=== PATIENT | male | born 1965 | race Caucasian/White ===

== ENCOUNTER 2017-04-07 03:20 | Emergency (ER) | payer MEDICARE, OTHER ==
[~2017-04-07] VITALS: Ht 177.8 cm; Wt 68.0 kg
[~2017-04-07 03:20] MED LIST: EMTR1TAB12 PO; HYDR-3326 PO; LOPI1TAB2 PO; RIFA300C4 PO; SULF1TAB48 PO
--- NOTE | 2017-04-07 03:30 | NUR ---
TO BED 10 BIB PARAMEDICS C/O DIARRHEA SINCE THURSDAY. PT AAOX4 NO ACUTE DISTRESS NOTED, RESP EVEN AND UNLABORED. PT DENIES N/V OR ABDOMINAL PAIN. ER MD AT BEDSIDE TO EVAL PT WITH ORDERS RECEIVED. WILL CARRY OUT ORDERS.
--- NOTE | 2017-04-07 03:45 | NUR ---
PT MEDICATED ORDERED BY ER .
[2017-04-07 03:51] LABS: BASOPHILS % (AUTO) 0.7 % (0.0-2.0); EOSINOPHILS % (AUTO) 0.8 % (0.0-6.0); HEMATOCRIT 35 % (39-51); HEMOGLOBIN 11.9 g/dL (13.5-17.5); LYMPHOCYTES # (AUTO) 1.4 /CMM (0.8-4.8); MEAN CORPUSCULAR HEMOGLOBIN 29 PG (26.0-33.0); MEAN CORPUSCULAR HGB CONC 34 g/dl (31.0-36.0); MEAN CORPUSCULAR VOLUME 85 fL (80-96); MONOCYTES # (AUTO) 0.3 /CMM (0.1-1.30); MONOCYTES % (AUTO) 7.8 % (2.0-12.0); NEUTROPHILS # (AUTO) 2.5 /CMM (1.8-8.9); NEUTROPHILS % (AUTO) 57.7 % (43.0-81.0); PLATELET COUNT (AUTO) 168 /CMM (150-450); RDW COEFFICIENT OF VARIATION 15.4 (11.5-15.0); RED BLOOD CELL COUNT(AUTO) 4.12 MIL/uL (4.5-6.0); WHITE BLOOD COUNT (AUTO) 4.4 K/uL (4.3-11.0)
[2017-04-07 04:04] LABS: INR 1.51 (0.87-1.13); PROTHROMBIN TIME 16.6 SECS (9.5-12.7)
--- NOTE | 2017-04-07 04:06 | NUR ---
PT ASLEEP, NO ACUTE DISTRESS NOTED, RESP EVEN AND UNLABORED. NO PAIN OR DISCOMFORT NOTED AT THIS TIME. CALL [facility] REACH.
[2017-04-07 04:15] LABS: ALBUMIN 3.8 g/dL (3.4-5.0); BILIRUBIN,DIRECT 0.2 mg/dL (0.0-0.2); CALCIUM, SERUM 8.8 mg/dL (8.5-10.1); POTASSIUM 3.5 mmol/L (3.5-5.1); TOTAL PROTEIN, SERUM 7.6 g/dL (6.4-8.2)
--- NOTE | 2017-04-07 05:07 | NUR ---
PT MEDICATED ORDERED BY ER .
--- NOTE | 2017-04-07 05:26 | NUR ---
PT ASLEEP, NO ACUTE DISTRESS NOTED, RESP EVEN AND UNLABORED. NO PAIN OR DISCOMFORT NOTED AT THIS TIME. CALL [facility] REACH.
--- NOTE | 2017-04-07 06:01 | NUR ---
IV removed. Catheter intact and site benign. Pressure and 4x4 applied to site. No bleeding noted. Patient discharged to home in stable condition. Written and verbal after care instructions given. Patient verbalizes understanding of instruction. ambulatory with a steady gait noted. pt aaox4 no acute distress noted, resp even and unlabored. pt denies pain or discomfort at this time.
[2017-04-07 06:02] VITALS: BP 124/76
== END 2017-04-07 06:03 | disposition home or self-care (01) ==
LOC: ER 03:21
DX: R19.7 Diarrhea, unspecified (principal); E86.0 Dehydration; Z88.0 Allergy status to penicillin; F17.200 Nicotine dependence, unspecified, uncomplicated; Z90.89 Acquired absence of other organs
CPT/HCPCS: 36415; 80048-TC; 80076-TC; 83690-TC; 85025-TC; 85610-TC; A4606; J7030; Z7610

== ENCOUNTER 2018-08-05 13:12 | Emergency (ER) | payer MEDICARE, OTHER ==
[~2018-08-05] VITALS: Ht 180.3 cm; Wt 72.6 kg
[~2018-08-05 13:12] MED LIST changes: -HYDR-3326 PO; +HYDR-3974 PO
[2018-08-05 13:23] VITALS: BP 128/72
== END 2018-08-05 14:17 | disposition home or self-care (01) ==
LOC: ER 13:15
DX: A08.4 Viral intestinal infection, unspecified (principal); F17.210 Nicotine dependence, cigarettes, uncomplicated; Z90.89 Acquired absence of other organs; Z96.652 Presence of left artificial knee joint; Z88.0 Allergy status to penicillin